=== PATIENT | male | born 1990 | race African-American/Black ===

== ENCOUNTER 2016-05-31 19:44 | Emergency (ER) | payer OTHER ==
[~2016-05-31] VITALS: Ht 183.5 cm; Wt 167.8 kg
[~2016-05-31 19:44] MED LIST: ATARAX25 MG ORAL; ATIVAN0.5 MG ORAL; IBUPROFEN600 MG ORAL; KEPPRA1000 MG ORAL; KEPPRA500 MG ORAL; LAMICTAL25 MG ORAL; TOPIRAMATE25 MG ORAL
[2016-05-31 21:01] VITALS: BP 142/82
[2016-05-31 21:02] VITALS: BP 142/82
--- NOTE | 2016-06-01 14:08 | Emergency Room Report ---
History of Present Illness General Chief Complaint: Pain Source: Patient Present Illness HPI Patient is a 26-year-old male who presented after increased pain to his right upper extremity. Patient had recent seizure. He reports having pain to his right upper arm. Patient states that he had been compliant with a seizure medications. He denies any headache he reports having some discoloration to his right arm. He denies any fever. Allergies: Coded Allergies: NO KNOWN ALLERGIES (Unverified Allergy, Unknown, 02/06/15) Patient History Past Medical History: see triage record Reviewed Nursing Documentation: PMH: Agreed, PSxH: Agreed Nursing Documentation-PMH Past Medical History: No History, Except For Hx Hypertension: Yes Hx Seizures: Yes Review of Systems All Other Systems: negative except mentioned in HPI Physical Exam Vital Signs Date Time Temp Pulse Resp B/P Pulse Ox O2 Delivery O2 Flow Rate FiO2 05/31/16 19:57 98.1 109 15 159/89 98 Room Air Sp02 EP Interpretation: reviewed, normal General Appearance: normal inspection, well appearing, no apparent distress, alert, GCS 15 Head: atraumatic ENT: normal ENT inspection, hearing grossly normal, normal voice Neck: normal inspection, full range of motion, supple, no bony tend Respiratory: normal inspection, lungs clear, normal breath sounds, no respiratory distress, no retraction, no wheezing Cardiovascular #1: regular rate, rhythm, no edema Gastrointestinal: normal inspection, normal bowel sounds, non tender, soft, no guarding, no hernia Genitourinary: no CVA tenderness Musculoskeletal: normal inspection, back normal, normal range of motion Neurologic: normal inspection, alert, oriented x3, responsive, exhibit carpenter III-XII nml as tested, speech normal Psychiatric: normal inspection, judgement/insight normal, mood/affect normal Skin: other - bruising to right upper extremity above upper arm, yellowing slightly Medical Decision Making Diagnostic Impression: Primary Impression: Arm bruise ER Course Patient presented for upper extremity pain. Differential diagnosis included was not limited to bruise, hematoma, fracture among others. Patient's benign exam and does not appear to require any further imaging or laboratory testing at this time. The patient appeared to have some improvement. The patient is advised to follow up with primary care doctor in 1-2 days. Patient is advised to return if any worsening condition or if any changes in status that are concerning. Last Vital Signs Date Time Temp Pulse Resp B/P Pulse Ox O2 Delivery O2 Flow Rate FiO2 05/31/16 21:02 98.3 99 16 142/82 100 Room Air Status: improved Disposition: HOME, SELF-CARE Condition: Stable Referrals: [facility] (PCP) Patient Instructions: Gian Hauser Jun 01, 2016 14:08
== END 2016-05-31 21:02 | disposition home or self-care (01) ==
LOC: EMR 20:28
DX: S40.021A Contusion of right upper arm, initial encounter (principal); X58.XXXA Exposure to other specified factors, initial encounter; Y92.9 Unspecified place or not applicable; I10 Essential (primary) hypertension; G40.909 Epilepsy, unspecified, not intractable, without status epilepticus
CPT/HCPCS: 82962; 99282

== ENCOUNTER 2016-06-08 10:29 | Emergency (ER) | payer OTHER ==
[~2016-06-08] VITALS: Ht 185.4 cm; Wt 169.6 kg
[2016-06-08 11:11] VITALS: BP 154/100
--- NOTE | 2016-06-09 07:59 | Emergency Room Report ---
History of Present Illness General Chief Complaint: Pain Source: Patient Present Illness HPI 26-year-old male presents ED for evaluation. Patient states his pectoralis muscle is torn in his right chest for many years now but states he is here today because there is a "blood clot". Patient states pain is sharp. 10 out of 10. Worse with movement. Denies shortness of breath. She states he's been here multiple times for similar complaint. Patient states he wants a referral to another hospital. No other aggravating or relieving factors. Denies any other associated symptoms Allergies: Coded Allergies: NO KNOWN ALLERGIES (Unverified Allergy, Unknown, 02/06/15) Patient History Past Medical History: seizures, psych hx Past Surgical History: none Pertinent Family History: none Social History: Denies: alcohol use, drug use, smoking Immunizations: UTD Reviewed Nursing Documentation: PMH: Agreed, PSxH: Agreed Nursing Documentation-PMH Past Medical History: No History, Except For Hx Hypertension: Yes History Of Psychiatric Problem: Yes - undiagnosed Hx Seizures: Yes Review of Systems All Other Systems: negative except mentioned in HPI Physical Exam Vital Signs Date Time Temp Pulse Resp B/P Pulse Ox O2 Delivery O2 Flow Rate FiO2 06/08/16 10:35 98.4 109 18 154/100 99 Sp02 EP Interpretation: reviewed, normal General Appearance: no apparent distress, alert, GCS 15, non-toxic, obese Head: normocephalic, atraumatic Eyes: bilateral eye PERRL, bilateral eye normal inspection ENT: hearing grossly normal, normal pharynx, no angioedema, normal voice Neck: full range of motion, supple/symm/no masses Respiratory: chest non-tender, lungs clear, normal breath sounds, speaking full sentences Cardiovascular #1: regular rate, rhythm, no edema Cardiovascular #2: 2+ carotid (R), 2+ carotid (L), 2+ radial (R), 2+ radial (L) , 2+ dorsalis pedis (R), 2+ dorsalis pedis (L) Gastrointestinal: normal bowel sounds, non tender, soft, non-distended, no guarding, no rebound Rectal: deferred Genitourinary: normal inspection, no CVA tenderness Musculoskeletal: back normal, gait/station normal, normal range of motion, non- tender Neurologic: alert, oriented x3, responsive, motor strength/tone normal, sensory intact, speech normal Psychiatric: judgement/insight normal, memory normal, mood/affect normal, no suicidal/homicidal ideation Reflexes: 3+ bicep (R), 3+ bicep (L), 3+ tricep (R), 3+ tricep (L), 3+ knee (R) , 3+ knee (L) Skin: normal color, no rash, warm/dry, well hydrated Lymphatic: no adenopathy Medical Decision Making Diagnostic Impression: Primary Impression: Chest wall pain, chronic Additional Impression: Anxiety ER Course 26-year-old male presents to ED for chest wall pain. Notes history of torn pectoralis muscle and "blood clot" Differential-chest wall strain, anxiety, ACS MS Patient placed on stretcher. After initial history physical exam reveals an obese male in no acute distress. Physical exam is unremarkable. There is no evidence of a torn muscle in his chest. Cardiac exam unremarkable. Lungs clear. I reviewed EMR. Patient has been here multiple times for similar presentations. Always complaining of some type of chest pain. Patient had multiple cardiac workups in imaging studies which were all negative. Given that I do not see the recent repeat imaging or workup at this time. Patient doesn't always speak in logical manner. I am suspecting underlying psychiatric condition or drug abuse. However patient is not a danger to himself or others. Asked for referral to another hospital and I told that we do not provide that. Patient will have to followup at another hospital on his own. Patient agrees to be discharged Diagnoses-chest wall pain chronic, anxiety Stable discharged to home. Followup with PMD. Return to ED if symptoms recur or worsen Last Vital Signs Date Time Temp Pulse Resp B/P Pulse Ox O2 Delivery O2 Flow Rate FiO2 06/08/16 11:11 98.4 18 154/100 99 06/08/16 10:35 109 Status: improved Disposition: HOME, SELF-CARE Condition: Stable Patient Instructions: Chest Wall Pain, [id number] JUDAH RIOS M.D. Jun 09, 2016 07:59
== END 2016-06-08 11:13 | disposition home or self-care (01) ==
LOC: EMR 10:52
DX: R07.89 Other chest pain (principal); G89.29 Other chronic pain; F41.9 Anxiety disorder, unspecified; I10 Essential (primary) hypertension
CPT/HCPCS: 99283

== ENCOUNTER 2016-07-15 03:08 | Emergency (ER) | payer OTHER ==
[~2016-07-15] VITALS: Ht 183.5 cm; Wt 142.9 kg
[2016-07-15 03:07] VITALS: BP 144/108
--- NOTE | 2016-07-15 03:39 | Emergency Room Report ---
History of Present Illness General Chief Complaint: Behavioral Complaint Source: Patient Present Illness HPI Is a 26-year-old male with a history of seizure and psychiatric history. He presents with chief complaint of weakness. He said that his blood flow to part of his body is not working well. He said that he dislocated his right bicep. This occurred after smoking marijuana. No other complaint. No suicidal thought homicidal thought. He called 911. Pain to right shoulder. Allergies: Coded Allergies: NO KNOWN ALLERGIES (Unverified Allergy, Unknown, 02/06/15) Patient History Past Medical History: see triage record, old chart reviewed, seizures Past Surgical History: other Pertinent Family History: none Social History: Reports: drug use - THC Immunizations: other Reviewed Nursing Documentation: PMH: Agreed, PSxH: Agreed Nursing Documentation-PMH Past Medical History: No History, Except For Hx Hypertension: Yes Hx Asthma: Yes - childhood Hx Seizures: Yes Review of Systems Eye: Denies: blurred vision, eye pain ENT: Denies: ear pain, nose congestion, throat swelling Respiratory: Denies: cough, shortness of breath Cardiovascular: Denies: chest pain, palpitations Gastrointestinal: Denies: abdominal pain, diarrhea, nausea, vomiting Musculoskeletal: Denies: back pain, joint pain Skin: Denies: rash Neurological: Denies: headache, numbness Endocrine: Denies: increased thirst, increased urine Hematologic/Lymphatic: Denies: easy bruising All Other Systems: negative except mentioned in HPI Physical Exam Vital Signs Date Time Temp Pulse Resp B/P Pulse Ox O2 Delivery O2 Flow Rate FiO2 07/15/16 02:56 98.2 100 18 153/111 98 Room Air vitals with hypertension Sp02 EP Interpretation: reviewed, normal General Appearance: well appearing, no apparent distress, alert Head: normocephalic, atraumatic Eyes: bilateral eye EOMI, bilateral eye PERRL ENT: hearing grossly normal, normal pharynx Neck: full range of motion, supple, no meningismus Respiratory: chest non-tender, lungs clear, normal breath sounds Cardiovascular #1: regular rate, rhythm, no murmur Gastrointestinal: normal bowel sounds, non tender, no mass, no organomegaly, no bruit, non-distended Musculoskeletal: back normal, gait/station normal, normal range of motion Psychiatric: depressed affect Skin: warm/dry Medical Decision Making Diagnostic Impression: Primary Impression: Weakness ER Course Patient with generalize weakness. No focal deficit. This may be drug related versus anxiety. No evidence of any fracture dislocation. We'll discharge home. Last Vital Signs Date Time Temp Pulse Resp B/P Pulse Ox O2 Delivery O2 Flow Rate FiO2 07/15/16 03:07 98.2 84 18 144/108 94 Room Air Status: improved Disposition: HOME, SELF-CARE Condition: Stable Additional Instructions: followup your Dr. in 7 days. Abstain from marijuana. Return if worse. ANITA VAZQUEZ M.D. July 15, 2016 03:39
[2016-07-15 03:52] VITALS: BP 144/108
== END 2016-07-15 03:51 | disposition home or self-care (01) ==
LOC: EDBD 03:08 → EMR 03:21
DX: R53.1 Weakness (principal); I10 Essential (primary) hypertension; F12.90 Cannabis use, unspecified, uncomplicated; J45.909 Unspecified asthma, uncomplicated; Z86.69 Personal history of other diseases of the nervous system and sense organs
CPT/HCPCS: 99283

== ENCOUNTER 2016-11-17 01:54 | Emergency (ER) | payer OTHER ==
[~2016-11-17] VITALS: Ht 185.4 cm; Wt 163.3 kg
[2016-11-17] MEDS ORDERED: KEPPRA1000 MG ORAL (02:14)
[2016-11-17] MEDS ORDERED: CARBAMAZEPINE200 MG ORAL (02:14)
[2016-11-17] MEDS ORDERED: AMLODIPINE BESY10 MG ORAL (02:14)
[2016-11-17] MEDS ORDERED: METOPROLOL SUCC50 MG ORAL (02:14)
[2016-11-17 02:19] VITALS: BP 142/88
[2016-11-17 02:30] VITALS: BP 0/0
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
== END 2016-11-17 02:30 | disposition home or self-care (01) ==
LOC: EMR 02:30
DX: F91.9 Conduct disorder, unspecified (principal); F12.929 Cannabis use, unspecified with intoxication, unspecified; I10 Essential (primary) hypertension; J45.909 Unspecified asthma, uncomplicated
CPT/HCPCS: 99282